=== PATIENT | male | born 1995 | race Caucasian/White ===

== ENCOUNTER 2022-04-18 23:30 | Inpatient (IN) | payer SELFPAY ==
[~2022-04-18] VITALS: Ht 162.6 cm; Wt 136.1 kg
[2022-04-18 23:50] VITALS: BP 140/79
--- NOTE | 2022-04-18 23:52 | NUR ---
PT TAKEN TO BED 07.
--- NOTE | 2022-04-18 23:57 | NUR ---
PATIENT INTO GOWN IN BED WITH SIDE RAILS UP X1. AWARE OF URINE SAMPLE NEEDED. URINE CUP AT BEDSIDE
[2022-04-19] VITALS (15 sets, daily range): BP systolic 109–163; BP diastolic 70–103
[2022-04-19 00:14] LABS: BASOPHILS % (AUTO) 0.4 % (0.0-2.0); EOSINOPHILS # (AUTO) 0.1 K/uL (0-0.4); HEMATOCRIT 44.9 % (36-52); HEMOGLOBIN 15.3 g/dL (12.0-18.0); LYMPHOCYTES # (AUTO) 2.5 K/uL (2.0-11.5); LYMPHOCYTES % (AUTO) 23.8 % (20.5-51.1); MEAN CORPUSCULAR HEMOGLOBIN 30 pg (27-31); MEAN CORPUSCULAR HGB CONC 34 g/dL (33-37); MEAN CORPUSCULAR VOLUME 86.7 fL (80-94); MONOCYTES # (AUTO) 0.9 K/uL (0.8-1.0); MONOCYTES % (AUTO) 8.4 % (1.7-9.3); NEUTROPHILS # (AUTO) 6.9 K/uL (1.8-7.7); NEUTROPHILS % (AUTO) 66.4 % (42.2-75.2); PLATELET COUNT (AUTO) 285 K/uL (140-450); RED BLOOD CELL COUNT(AUTO) 5.18 MIL/uL (4.20-6.10); RED CELL DISTRIBUTION WIDTH 13.8 % (11.6-13.7); WHITE BLOOD COUNT (AUTO) 10.4 K/uL (4.8-10.8)
--- NOTE | 2022-04-19 00:19 | NUR ---
URINE WALKED TO LAB
--- NOTE | 2022-04-19 00:30 | NUR ---
26 Y/O MALE BIB SELF FOR ABD PAIN THAT STARTED TODAY. PAIN RADIATES IN RLQ TO RIGHT UPPER THIGHDENIES N/V/F/COUGH/ CHEST PAIN; SKIN IS PINK/WARM/DRY; AAOX4 WITH EVEN AND STEADY GAIT; LUNGS CLEAR BL; HR EVEN AND REGULAR; PT DENIES ANY FEVER, CP, SOB, OR COUGH AT THIS TIME; PATIENT STATES PAIN OF 0/10 AT THIS TIME; VSS; PATIENT POSITIONED FOR COMFORT; HOB ELEVATED; BEDRAILS UP X2; BED DOWN. ER MD MADE AWARE OF PT STATUS.
[2022-04-19] MEDS ORDERED: LOPERAMIDE 2 MG CAP PO ONE (00:35)
[2022-04-19] MEDS ORDERED: DICYCLOMINE 10 MG CAP PO ONE (00:35)
--- NOTE | 2022-04-19 00:38 | NUR ---
PT TAKEN TO CT
[2022-04-19 00:42] LABS: ALBUMIN 3.9 g/dL (3.4-5.0); ANION GAP 10.3 (8-16); CARBON DIOXIDE 30.3 mmol/L (21-32); CREATININE 1.1 mg/dL (0.6-1.3); POTASSIUM 4.6 mmol/L (3.5-5.1); TOTAL BILIRUBIN 0.5 mg/dL (0.0-1.0)
--- NOTE | 2022-04-19 00:50 | NUR ---
PT BACK FROM CT MEDS GIVEN AND TOLERATED
[2022-04-19 01:00] LABS: APPEARANCE,URINE CLEAR (CLEAR); BILIRUBIN,URINE NEGATIVE (NEGATIVE); BLOOD, URINE NEGATIVE (NEGATIVE); COLOR,URINE YELLOW (YELLOW); LEUKOCYTE ESTERASE ,URINE NEGATIVE (NEGATIVE); NITRITE, URINE NEGATIVE (NEGATIVE); UGLUCOSE NEGATIVE (NEGATIVE)
[2022-04-19] MEDS ORDERED: NACL 0.9% 1,000 ML IV ONE (03:00)
[2022-04-19] MEDS ORDERED: MORPHINE SULFATE 4 MG/ML SYR IVP PRN (03:00)
--- NOTE | 2022-04-19 03:19 | NUR ---
20G IV CATH PLACED L AC. PT ON MONITOR SIDE RAILS UP X2
--- NOTE | 2022-04-19 04:33 | NUR ---
SKIN IS INTACT. PT DENIES TAKING MEDICATION AT HOME.
--- NOTE | 2022-04-19 04:36 | NUR ---
COVID SWAB COLLECTED AND SENT TO LAB
--- NOTE | 2022-04-19 05:38 | NUR ---
XRAY AT BEDSIDE
--- NOTE | 2022-04-19 05:52 | NUR ---
PENDING ADMISSION ORDERS FOR [facility]
--- NOTE | 2022-04-19 06:18 | NUR ---
SPOKE WITH DR SANDERS REQUESTED SURGERY CHECK LIST ON PATIENT FOR SURGERY THIS AM 0730. PATIENT AWARE OF SURGERY
--- NOTE | 2022-04-19 06:35 | NUR ---
SURGERY CHECK LIST COMPLETED BY LITA CRUZ. NOTIFED LAB ON TYPE AND CROSS ORDER
[2022-04-19 06:57] LABS: PROTHROMBIN TIME 9.5 secs (10.8-13.4)
--- NOTE | 2022-04-19 07:04 | NUR ---
DR MOSES AT BEDSIDE
--- NOTE | 2022-04-19 07:35 | NUR ---
Patient will be admitted to care of Moses MASSEY. Admitted to [facility]. Will go to room 120A. Belongings list completed. Report to Sharona CRUZ.
--- NOTE | 2022-04-19 07:40 | NUR ---
PT ARRIVED AT UNIT VIA WHEELCHAIR, AMBULATED TO BED, IN STABLE CONDITION. PT AWAKE ALERT, AAOX4, ABLE TO LET NEEDS KNOWN. IV TO LEFT AC 20G PATENT INTACT, SL. PT ON ROOM AIR, NO SOB NOTED, INITIAL ASSESSMENT DONE, ALL SAFETY PRECAUTION MET, MRSA SWAB TAKEN, ORIENT PT TO BED, CALL LIGHT AND ROOM. PT NPO FOR SURGERY TODAY. TEACH PT REGARDING PRE OP. PT STATED UNDERSTANDING, WILL CONTINUE TO MONITOR.
--- NOTE | 2022-04-19 07:46 | NUR ---
Pt report given to Brooke CRUZ. Transfer of care at this time.
[2022-04-19] MEDS ORDERED: BUPIVACAINE-MPF 0.25% 30 ML VIAL INJ ONE (07:59)
[2022-04-19] MEDS ORDERED: LIDOCAINE/EPI MPF 1%1:200000 30 ML VIAL INJ ONE (07:59)
--- NOTE | 2022-04-19 08:10 | NUR ---
PT TAKEN TO OR FOR PROCEDURE.
[2022-04-19] MEDS ORDERED: ONDANSETRON 4 MG/2 ML VIAL IM/IVP PRN (08:30)
[2022-04-19] MEDS ORDERED: POTASSIUM CHLORIDE 10 MEQ TABER PO PRN (08:30)
[2022-04-19] MEDS ORDERED: HYDROcodone/APAP 7.5/325 MG 1 TAB PO PRN (08:30)
[2022-04-19] MEDS ORDERED: ZOLPIDEM 5 MG TAB PO PRN (08:30)
[2022-04-19] MEDS ORDERED: guaiFENesin DM 200/20 MG-10 ML 10 ML UDC PO PRN (08:30)
[2022-04-19] MEDS: DEXT 5% /NACL 0.9% 1,000 ML IV SCH ×3 (08:30→20:25)
[2022-04-19] MEDS ORDERED: MORPHINE SULFATE 2 MG/ML SYR IVP PRN (08:30)
[2022-04-19] MEDS ORDERED: cephALEXin 500 MG CAP PO SCH (08:30)
[2022-04-19] MEDS ORDERED: fentaNYL citrate 0.05 MG/ML VIAL ONE (08:46)
[2022-04-19] MEDS ORDERED: PROPOFOL 200 MG/20 ML VIAL IV ONE ×2 (08:47)
[2022-04-19] MEDS: PANTOPRAZOLE 40 MG TABEC PO SCH (09:00)
[2022-04-19 09:29] LABS: BARBITURATE, URINE NEGATIVE ng/ml (NEG <=200); BENZODIAZEPINE, URINE NEGATIVE ng/mL (NEG <=200); CANNABINOID, URINE NEGATIVE ng/mL (NEG <=50); COCAINE, URINE NEGATIVE ng/mL (NEG <=300); OPIATE, URINE NEGATIVE ng/mL (NEG <=2000); PHENCYCLIDINE SCREEN,URINE NEGATIVE ng/mL (NEG <=25)
[2022-04-19] MEDS ORDERED: HYDROmorphone 1 MG/ML AMP IVP PRN (09:30)
[2022-04-19 09:51] LABS: AMYLASE 61 U/L (25-115); CHOL/HDL RATIO 5.3 (1-4.5); HDL CHOLESTEROL 33 mg/dL (40-60); LDL (CALC) 109 mg/dL (60-100); LIPASE 66 U/L (73-393); MAGNESIUM 2.2 mg/dL (1.8-2.4); PHOSPHORUS 3.5 mg/dL (2.5-4.9); TRIGLYCERIDES 174 mg/dL (30-150)
--- NOTE | 2022-04-19 10:01 | NUR ---
PATIENT HAS BEEN SCREENED AND CATEGORIZED LOW NUTRITION RISK. PATIENT WILL BE SEEN WITHIN 7 DAYS OF ADMISSION. 04/25/[address]
[2022-04-19 10:13] LABS: PROTHROMBIN TIME 9.7 secs (10.8-13.4)
[2022-04-19] MEDS ORDERED: ROCURONIUM 50 MG/5 ML VIAL IV ONE ×2 (10:17)
[2022-04-19] MEDS ORDERED: SUCCINYLCHOLINE CHLORIDE 200 MG/10 ML VIAL IVP ONE ×2 (10:17)
[2022-04-19 11:14] LABS: FREE T4 (FREE THYROXINE) 0.99 ng/dL (0.76-1.46); THYROID STIMULATING HORMONE 3.39 uIU/mL (0.34-3.74)
[2022-04-19] MEDS ORDERED: NALOXONE 0.4 MG/ML VIAL ONE (11:24)
--- NOTE | 2022-04-19 11:45 | NUR ---
ON OR ABOUT THIS TIME PATIENT WAS ADMITTED INTO ICU FROM THE OPERATING ROOM FOR RESPIRATORY DISTRESS THE PATIENT WAS ENTERING BED 5; PATIENT LOC AWAKE; WHILE THE OPERATING BUSINESS TEACHER WAS DEPRESSING THE AMBU BAG I HEARD AN AUDIBLE SOUND ON EXHALATION RESONATING FROM THE OROPHARYNGEAL REGION AND VIEWED THE ENDOTRACHEAL TUBE (ETT) SECURED AT 17-18cm LIP LINE; I THEN PROCEEDED TO INTERJECT 8ml OF AIR VIA A 10ml SYRINGE INTO THE PROFILE SHAPER OPERATOR BALLOON; THIS PROCESS DID NOT RESULT IN A PROPER SEAL WHICH WAS VALIDATED BY THE AMBU BAG DEPRESSION; PERSISTENT AUDIBLE SOUND IS AGAIN PRESENT DURING EXHALATION FROM THE OROPHARYNGEAL REGION; I THEN PROCEEDED TO INTERJECT ANOTHER 8ml OF VIA A 10ml SYRINGE INTO THE PROFILE SHAPER OPERATOR BALLOON; AGAIN THIS PROCESS DID NOT RESULT IN THE PROPER SEAL; I INFORMED DR. ROACH THAT THE ETT WAS OUT AND THAT THE PATIENT NEEDED TO BE REINTUBATED; PATIENT WAS NOW CONNECTED TO THE BEDSIDE MONITOR; THE SATURATION READING WAS 78%-80% I INFORMED DR. NICOLA ROACH THAT THE ENDOTRACHEAL TUBE WAS OUT AND NOT IN THE TRACHEA; THE FOREMENTIONED MD INSISTED THAT THE ETT WAS IN THE TRACHEA AND THAT "I HURRY UP" AND PLACE THE PATIENT ON THE VENTILATOR; ONCE THE PATIENT WAS PLACED ON A [employer] R860 VENTILATOR; UPON EXHALATION AN INCREASE IN AUDIBLE SOUND WAS AGAIN PRESENT FROM THE OROPHARYNGEAL REGION; I AGAIN INFORMED DR. ROACH THAT THE PATIENT WAS NOT PROPERLY INTUBATED AND NEEDED TO BE REINTUBATED; I POINTED OUT THREE FACTORS TO DR. ROACH 1) AUDIBLE SOUND FROM OROPHARYNGEAL REGION 2) LOW SATURATION 78%-80% 3) VENTILATOR NOT REGISTERING AN ADEQUATE TIDAL VOLUME (Vt) READING JOEL THAN 1ml; IT WAS AT THIS TIME DR. ROACH DECIDED TO REINTUBATE THE PATIENT
[2022-04-19] MEDS ORDERED: PROPOFOL 1000 MG/100 ML PREMIX 100 ML IV ONE (11:50)
--- NOTE | 2022-04-19 11:50 | NUR ---
PT TRANSFERRED TO ICU BED 5. HUMAN SERVICES MANAGER AND ANESTHESIOLOGIST AT BEDSIDE. RT BAGGING PT.
[2022-04-19] MEDS: PROPOFOL 1000 MG/100 ML PREMIX 100 ML IV PRN ×2 (11:54→13:00)
--- NOTE | 2022-04-19 11:55 | NUR ---
ANESTHESIOLOGIST DR ROACH INTUBATED PATIENT.
--- NOTE | 2022-04-19 12:00 | NUR ---
PT TRANSFERRED TO ICU FROM OR, GIVEN BEDSIDE REPORT TO NANCY ARCHER FOR CONTINUOUS OF CARE.
--- NOTE | 2022-04-19 12:00 | NUR ---
ON OR ABOUT THIS TIME PATIENT EXTUBATED; REINTUBATED BY DR. NICOLA ROACH WITH A ENDOTRACHEAL TUBE (ETT) #7.5 SECURED AT 24cm TEETH/GUM LINE WITH AN ANCHOR FAST; ETT CUFF INJECTED WITH 8ml OF AIR VIA 10ml SYRINGE; ETT PLACEMENT CONFIRMATION VIA CO2 DETECTOR (YELLOW); AUSCULTATION TO BILATERAL LUNG DILLON APEX TO MID BY DR. ROACH; CXR TO FOLLOW
--- NOTE | 2022-04-19 12:00 | NUR ---
XRAY AT BEDSIDE
--- NOTE | 2022-04-19 12:03 | NUR ---
PLACED ON A Ilink SystemsSCAPE VENTILATOR PLUGGED INTO RED OUTLET TOLERATING WELL WITHOUT COMPLICATIONS NOTED TO AN ENDOTRACHEAL TUBE #7.5 SECURED AT 24cm TEETH/GUM LINE WITH AN ANCHOR FAST CUFF PRESSURE CHECKED NOTED AMBU BAG AT BEDSIDE EQUAL CHEAT RISE AIRWAY PATENT
--- NOTE | 2022-04-19 12:05 | NUR ---
RECEIVED BEDSIDE REPORT FROM BERYL ACOSTA RN FOR CONTINUITY OF CARE. SEDATED, RASS -3. ETT TO VENT, ACVC, FIO2 100%, VT 500, R 18, PEEP 5. SR ON BEDSIDE MONITOR. BOWEL SOUNDS ACTIVE. INCONTINENT OF BOWEL AND BLADDER. GENERALIZED WEAKNESS. ABD INCISIONS NOTED. L AC 20G PATENT INTACT, INFUSING PROPOFOL AT 60 MCG/KG/MIN. STANDARD PRECAUTIONS IN PLACE. SAFETY PRECAUTIONS MET. INITIAL ASSESSMENT COMPLETE, WILL CONTINUE TO CLOSELY MONITOR.
--- NOTE | 2022-04-19 12:20 | NUR ---
NGT INSERTED FOR PO SCHEDULED MEDS.
--- NOTE | 2022-04-19 12:28 | NUR ---
XRAY AT BEDSIDE
[2022-04-19] MEDS: cephALEXin 500 MG CAP PO SCH ×3 (13:56→23:08)
[2022-04-19 13:57] LABS: BASOPHILS % (AUTO) 0.1 % (0.0-2.0); EOSINOPHILS % (AUTO) 0.1 % (0.0-4.0); HEMATOCRIT 44.6 % (36-52); LYMPHOCYTES # (AUTO) 1.2 K/uL (2.0-11.5); LYMPHOCYTES % (AUTO) 8.9 % (20.5-51.1); MEAN CORPUSCULAR HEMOGLOBIN 30 pg (27-31); MEAN CORPUSCULAR HGB CONC 34 g/dL (33-37); MEAN CORPUSCULAR VOLUME 87.6 fL (80-94); MONOCYTES # (AUTO) 0.7 K/uL (0.8-1.0); NEUTROPHILS # (AUTO) 11.4 K/uL (1.8-7.7); NEUTROPHILS % (AUTO) 85.9 % (42.2-75.2); PLATELET COUNT (AUTO) 277 K/uL (140-450); RED BLOOD CELL COUNT(AUTO) 5.09 MIL/uL (4.20-6.10); RED CELL DISTRIBUTION WIDTH 13.9 % (11.6-13.7); WHITE BLOOD COUNT (AUTO) 13.2 K/uL (4.8-10.8)
--- NOTE | 2022-04-19 14:02 | NUR ---
PER SUZI/DATA TRANSCRIBERNANCY FERGUSON PLACE PATIENT ON CPAP; IF TOLERATED X 30 MINUTES DRAW ABG Addendum: 04/19/22 at 1415 by Emmanuel Nugent RT ANA MARIA = MICHELE
[2022-04-19 14:04] LABS: ALBUMIN 3.6 g/dL (3.4-5.0); ANION GAP 10.9 (8-16); CARBON DIOXIDE 28.5 mmol/L (21-32); CREATININE 1.1 mg/dL (0.6-1.3); MAGNESIUM 1.7 mg/dL (1.8-2.4); PHOSPHORUS 3.4 mg/dL (2.5-4.9); POTASSIUM 4.4 mmol/L (3.5-5.1); TOTAL BILIRUBIN 0.5 mg/dL (0.0-1.0)
--- NOTE | 2022-04-19 14:05 | NUR ---
PER MICHELE LÓPEZ/ DARVIN FERGUSON; PLACED ON CPAP NOTED TOLERATING WELL WITHOUT DISTRESS NOTED EQUAL CHEST RISE GOOD AERATION THROUGHOUT BILATERAL LUNG DILLON AIRWAY PATENT SUZI/PAST DUE ACCOUNTS CLERK NOTIFIED
--- NOTE | 2022-04-19 14:48 | NUR ---
TOLERATING CPAP TRIALS WELL WITHOUT COMPLICATIONS NOTED GOOD CHEST RISE AND AERATION THROUGHOUT BILATERAL LUNG DILLON AIRWAY PATENT
--- NOTE | 2022-04-19 14:57 | NUR ---
ABG DONE TO VALIDATE CPAP TRIAL
--- NOTE | 2022-04-19 15:07 | NUR ---
CALLED DR. DARVIN FERGUSON AT [facility] TO REVIEW ABG SAMPLE REPORT CHE/EXCHANGE TO PAGE FORMKARLIE MASSEY; CALL BACK PHONE NUMBER AND PATIENT INFORMATION GIVEN
--- NOTE | 2022-04-19 15:09 | NUR ---
CALL BACK FROM DR. DARVIN FERGUSON REVIEWED ABG SAMPLE REPORT TORBO: EXTUBATE PATIENT; HHN Q4PRN FOR SOB; CALL/TEXT MD EITHER WAY IF PATIENT IS "GOOD OR BAD"
[2022-04-19] MEDS ORDERED: ALBUTEROL SULFATE/IPRATROPIU 3 ML SOL IH PRN (15:15)
--- NOTE | 2022-04-19 17:00 | NUR ---
REMOVED NGT INDICATED. PT TOLERATES ICE CHIPS, THIN LIQUIDS, AND APPLESAUCE FOR BEDSIDE SWALLOW EVALUATION. WILL CONTINUE TO CLOSELY MONITOR
--- NOTE | 2022-04-19 17:15 | NUR ---
VIA HOSPITAL TEXT DR. DARVIN FERGUSON INFORMED OF PROGRESS OF PATIENT OFF VENTILATOR
[2022-04-19] MEDS: DOCUSATE SODIUM 100 MG GELCAP PO PRN (18:01)
--- NOTE | 2022-04-19 18:18 | NUR ---
PT COMPLAINS OF CHILLS, AXILLARY TEMPERATURE 100.5. TYLENOL ADMINISTERED PER PRN ORDERS.
[2022-04-19] MEDS: ACETAMINOPHEN 325 MG TAB PO PRN (18:19)
--- NOTE | 2022-04-19 19:20 | NUR ---
ENDORSED BEDSIDE REPORT TO HONG VICKERS RN FOR CONTINUITY OF CARE.
--- NOTE | 2022-04-19 19:27 | NUR ---
PT ALERT AND ORIENTED X 4, SITTING AT SIDE OF BED.STILL ON NPO EXCEPT MEDS; MESSAGE DR GIFFORD, ORDERS RECEIVED TO PLACE PT ON REGULAR DIET, TO EAT SLOWLY.PT MADE AWARE.HONG CRUZ ALSO AWARE OF THE DIET CHANGE.
--- NOTE | 2022-04-19 19:30 | NUR ---
RECEIVED REPORT FROM NANCY ALARCON AT BEDSIDE FOR CONTINUITY OF CARE, PT IS SITTING UP IN BED HE IS ALERT AND ORIENTED X4 AND ON 3 LITERS VIA N/C HE HAS A 20 GUAGE IV SITE ON THE LEFT AC WHICH IS SALINE LOCKED AT THIS TIME. PT HAS 2 SURGICAL WOUNDS WHICH ARE DRY AND INTACT CLOSED WITH DERMABOND SURROUNDING SKIN IS PINK. PT ABLE TO PIVOT TRANSFER TO THE COMMODE HE IS TRYING TO HAVE A BOWEL MOVEMENT. PT SAID PAIN IS TOLERABLE AND THAT HE DOESN'T WANT TO SLOW DOWN BOWEL MOVEMENT WITH PAIN MEDICATION. ALL UNIVERSAL PRECAUTION IN PLACE.
--- NOTE | 2022-04-19 20:20 | NUR ---
RT WAS AT BEDSIDE 02 TO 2 LITERS VIA N/C. LUNG SOUNDS CLEAR BUT DIMINISHED, BOWEL SOUNDS ARE HYPOACTIVE. V/S FOLLOWS: T 98.7 P 112 R 28 B/P 144/70 02 98% AT 3 LITERS VIA 02. SURGICAL; WOUNDS MEASURED, AND PICTURES TAKEN WOUND MEASUREMENTS FOLLOWS: LOWER ABDOMINAL WOUND MEASURES 1MM X 3 CM X O DEPTH AND UMBICAL WOUND MEASURES 2CM X 1MM XO DEPTH. ALL UNIVERSAL FALLS PRECAUTIONS IN PLACE.
[2022-04-19] MEDS: HYDROcodone/APAP 5/325 MG 1 TAB TAB PO PRN (23:07)
--- NOTE | 2022-04-19 23:15 | NUR ---
PT ASSISTED TO BEDSIDE COMMODE ;PT WANTED TO TRY AND HAVE A BM. PT ONLY VOIDED, HE WAS ASSISTED BACK TO BED. HE HAD C/O OF 6/10 PAIN IN HIS ABDOMEN. PT INSTRUCTED TO SPLINT ABDOMEN WITH A PILLOW WHEN COUGHING, OR BLOWING HIS NOSE OR OTHERWISE USING ABDOMINAL MUSCLES. PT WAS GIVEN 1 TAB NORCO PO/PRN FOR MODERATE PAIN. PT ALSO GIVEN ORDERED KEFLEX PO. EDUCATION REGARDING MEDICATION PROVIDED AT BEDSIDE. PT VERBALIZED UNDERSTANDING. D5N/S RUNNING AT 170MLS/HR ORDERED IV SITE INTACT AND FLUSHED PATENT. ALL UNIVERSAL FALLS PRECAUTIONS IN PLACE.
[2022-04-20] VITALS (7 sets, daily range): BP systolic 103–153; BP diastolic 55–103
--- NOTE | 2022-04-20 00:30 | NUR ---
PT HAD SUPPLEMENTAL 02 OFF IN EFFORT TO WEAN DOWN PT FROM O2, HIS 02 DROPPED TO 91, PT PLACED BACK ON 2 LITERS 02 VIA N/C. ALSO NEW BAG OF D5N/S AND CONTINUES TO RUN AT 170MLS/HR ORDERED. V/S FOLLOWS: T 98.4 P 93 R 26 02 91% ON ROOM AIR. ALL UNIVERSAL FALLS PRECAUTIONS IN PLACE.
[2022-04-20] MEDS: DEXT 5% /NACL 0.9% 1,000 ML IV SCH ×2 (01:11→07:46)
--- NOTE | 2022-04-20 02:30 | NUR ---
ROUNDS DONE, PT ASLEEP IN BED. D5N/S CONTINUES ORDERED AT 170MLS/HR ALL UNIVERSAL FALLS PRECAUTIONS IN PLACE.
--- NOTE | 2022-04-20 04:30 | NUR ---
ROUNDS DONE, IV FLUSHED, PT ASLEEP BUT AWAKENED TO NAME AND LIGHT TOUCH , NO C/O VOICED. ALL FALLS PRECAUTIONS IN PLACE.
[2022-04-20 06:16] LABS: ANION GAP 10.9 (8-16); CARBON DIOXIDE 28.8 mmol/L (21-32); CREATININE 0.9 mg/dL (0.6-1.3); POTASSIUM 3.7 mmol/L (3.5-5.1)
[2022-04-20 06:30] LABS: BASOPHILS % (AUTO) 0.2 % (0.0-2.0); EOSINOPHILS % (AUTO) 0.5 % (0.0-4.0); HEMATOCRIT 41.7 % (36-52); HEMOGLOBIN 14.1 g/dL (12.0-18.0); LYMPHOCYTES # (AUTO) 2.1 K/uL (2.0-11.5); LYMPHOCYTES % (AUTO) 21.4 % (20.5-51.1); MEAN CORPUSCULAR HEMOGLOBIN 30 pg (27-31); MEAN CORPUSCULAR HGB CONC 34 g/dL (33-37); MEAN CORPUSCULAR VOLUME 87.3 fL (80-94); NEUTROPHILS # (AUTO) 6.6 K/uL (1.8-7.7); NEUTROPHILS % (AUTO) 67.9 % (42.2-75.2); PLATELET COUNT (AUTO) 267 K/uL (140-450); RED BLOOD CELL COUNT(AUTO) 4.78 MIL/uL (4.20-6.10); RED CELL DISTRIBUTION WIDTH 13.9 % (11.6-13.7); WHITE BLOOD COUNT (AUTO) 9.7 K/uL (4.8-10.8)
[2022-04-20] MEDS: cephALEXin 500 MG CAP PO SCH ×3 (06:35→18:05)
--- NOTE | 2022-04-20 06:35 | NUR ---
patient was given keflex by mouth at 0633. Patient was educated on name of medication and indication to prevent infection from surgery.
--- NOTE | 2022-04-20 07:10 | NUR ---
RECEIVED BEDSIDE REPORT FROM HONG VICKERS RN FOR CONTINUITY OF CARE. AAOX4, RESTING COMFORTABLY, PERRLA. ON 2L NC. SR ON BEDSIDE MONITOR. BOWEL SOUNDS ACTIVE. CONTINENT OF BOWEL, BEDSIDE COMMODE NOTED, FLATUS NOTED LAST NIGHT PER PT. CONTINENT OF BLADDER, URINAL AT BEDSIDE. ABD INCISIONS TO MEDIAL UMBILICUS AND LL ABD, SEE WOUND ASSESSMENT. L AC 20G PATENT INTACT, INFUSING D5NS AT 170 ML/H. STANDARD PRECAUTIONS IN PLACE. SAFETY PRECAUTIONS MET. INITIAL ASSESSMENT COMPLETE, WILL CONTINUE TO CLOSELY MONITOR.
--- NOTE | 2022-04-20 07:14 | NUR ---
REPORT GIVEN TO AGNES AT BEDSIDE FOR CONTINUITY OF CARE, PT IN STABLE CONDITION. ALL UNIVERSAL FALLS PRECAUTIONS IN PLACE.
--- NOTE | 2022-04-20 07:45 | NUR ---
SATURATION 92% ON ROOM AIR POST HHN THERAPY PLACED ON HUMIDIFIED SUPPLEMENTAL OXYGEN AT 2 LPM VIA NC
[2022-04-20 08:09] LABS: T4 (THYROXINE) 7.5 ug/dL (4.5-12.0)
[2022-04-20] MEDS: PANTOPRAZOLE 40 MG TABEC PO SCH (08:19)
--- NOTE | 2022-04-20 08:48 | NUR ---
SEEN AND EXAMINED BY DR GIFFORD, RECEIVED DOWNGRADE ORDERS.
--- NOTE | 2022-04-20 09:30 | NUR ---
PT FINISHED 25% OF BREAKFAST. TOLERATED WELL. WILL CONTINUE TO CLOSELY MONITOR.
--- NOTE | 2022-04-20 11:45 | NUR ---
ON AO ABOUT THIS TIME Addendum: 04/20/22 at 1510 by Emmanuel Nugent RT CANCELLED
--- NOTE | 2022-04-20 12:45 | NUR ---
PT FINISHED 25% OF LUNCH. WILL CONTINUE TO CLOSELY MONITOR.
[2022-04-20] MEDS: ACETAMINOPHEN 325 MG TAB PO PRN (14:11)
--- NOTE | 2022-04-20 15:00 | NUR ---
ENDORSED BEDSIDE REPORT TO BERYL ACOSTA RN FOR CONTINUITY OF CARE.
--- NOTE | 2022-04-20 15:01 | NUR ---
RECEIVED BEDSIDE REPORT FROM NANCY HULL, PT RESTING, NO DISTRESS NOTED, IV TO LEFT AC 20G PATENT INTACT, PT ON ROOM AIR, NO SOB NOTED, AWAKE ALERT ABLE TO LET NEEDS KNOWN, WILL CONTINUE TO MONITOR.
--- NOTE | 2022-04-20 15:21 | NUR ---
DC PLANN[age] YRS OLD MALE PATIENT WAS ADMITTED FROM HOME WITH A DX OF APPENDICITIS. PATIENT HAS A HX OF OBESITY. CT ABD SHOWED SLIGHTLY ENLARGED APPENDIX. CXR SHOWED LOW LUNG VOLUMES WITH VASCULAR CROWDING. RAPID COVID TEST NEGATIVE. DR SANDERS PERFORMED LAPAROSCOPIC APPENDECTOMY. ADMINISTERED IVF . DC PLAN TO GO HOME WHEN STABLE CM TO FOLLOW
--- NOTE | 2022-04-20 15:45 | NUR ---
PT TRANSFERRED TO ROOM 120B, TOLERATED WELL, SITUATED PT TO BED, ORIENT PT TO BED ROOM AND CALL LIGHT, WILL CONTINUE TO MONITOR.
--- NOTE | 2022-04-20 19:30 | NUR ---
ENDORSED PT TO GATE AGENT NURSE ARASELI CRUZ, FOR CONTINUOUS OF CARE.
--- NOTE | 2022-04-20 19:49 | NUR ---
GET THE REPORT FROM MORNING NURSE BERYL , PATIENT IS ALERT ORIENTED X 4 , CALL LIGHT IS WITHIN THE REACH ,WILL CONTINUE TO MONITOR PATIENT.
--- NOTE | 2022-04-20 20:20 | NUR ---
PATIENT IS LYING ON BED, PATIENT IS ALERT AND ORIENTED X 4 , VITAL SIGN IS WITHIN THE NORMAL RANGE, NO ANY COMPLAIN OF PAIN OR SHORTNESS OF BREATH AT THIS TIME, CALL LIGHT IS WITHIN THE REACH ,WILL CONTINUE TO MONITOR PATIENT.
[2022-04-20] MEDS: HYDROcodone/APAP 5/325 MG 1 TAB TAB PO PRN (21:15)
--- NOTE | 2022-04-20 21:15 | NUR ---
PATIENT IS COMPLAINING OF PAIN 6/10, NORCO 5/325 MG PO IS GIVEN PER DOCTOR ORDER, WILL REASSESS PAIN LAVAL IN HOUR, CALL LIGHT IS WITHIN THE REACH, WILL CONTINUE TO MONITOR PATIENT.
[2022-04-21] MEDS: cephALEXin 500 MG CAP PO SCH ×2 (00:02→05:17)
--- NOTE | 2022-04-21 00:09 | NUR ---
PATIENT IS LYING ON BED , ALL SCHEDULE MEDICATION IS GIVEN PER DOCTOR ORDER, NO ANY COMPLAIN OF PAIN AT THIS TIME ,CALL LIGHT IS WITHIN THE REACH, WILL CONTINUE TO MONITOR PATIENT.
--- NOTE | 2022-04-21 02:47 | NUR ---
PATIENT IS LYING ON BED, NO ANY COMPLAIN OF PAIN AT THIS TIME, CALL LIGHT IS WITHIN THE REACH ,WILL CONTINUE TO MONITOR PATIENT
[2022-04-21 04:00] VITALS: BP 137/79
[2022-04-21] MEDS: DEXT 5% /NACL 0.9% 1,000 ML IV SCH (04:17)
--- NOTE | 2022-04-21 05:12 | NUR ---
PATIENT IS LYING ON BED, NO ANY COMPLAIN OF PAIN AT THIS TIME, VITAL SIGN IS WITHIN THE NORMAL RANGE, CALL LIGHT IS WITHIN THE REACH ,WILL CONTINUE TO MONITOR PATIENT.
[2022-04-21 05:15] LABS: ANION GAP 10.2 (8-16); CARBON DIOXIDE 29.4 mmol/L (21-32); CREATININE 0.9 mg/dL (0.6-1.3); POTASSIUM 3.6 mmol/L (3.5-5.1)
--- NOTE | 2022-04-21 05:19 | NUR ---
ALL SCHEDULE MEDICATION IS GIVEN PER DOCTOR ORDER, CALL LIGHT IS WITHIN THE REACH, WILL CONTINUE TO MONITOR PATIENT.
[2022-04-21 06:05] LABS: BASOPHILS % (AUTO) 0.2 % (0.0-2.0); EOSINOPHILS # (AUTO) 0.1 K/uL (0-0.4); EOSINOPHILS % (AUTO) 1.2 % (0.0-4.0); HEMATOCRIT 40.8 % (36-52); HEMOGLOBIN 13.8 g/dL (12.0-18.0); LYMPHOCYTES % (AUTO) 23.6 % (20.5-51.1); MEAN CORPUSCULAR HEMOGLOBIN 30 pg (27-31); MEAN CORPUSCULAR HGB CONC 34 g/dL (33-37); MEAN CORPUSCULAR VOLUME 87.7 fL (80-94); MONOCYTES # (AUTO) 0.7 K/uL (0.8-1.0); MONOCYTES % (AUTO) 8.8 % (1.7-9.3); NEUTROPHILS # (AUTO) 5.5 K/uL (1.8-7.7); NEUTROPHILS % (AUTO) 66.2 % (42.2-75.2); PLATELET COUNT (AUTO) 252 K/uL (140-450); RED BLOOD CELL COUNT(AUTO) 4.66 MIL/uL (4.20-6.10); RED CELL DISTRIBUTION WIDTH 13.7 % (11.6-13.7); WHITE BLOOD COUNT (AUTO) 8.4 K/uL (4.8-10.8)
--- NOTE | 2022-04-21 07:20 | NUR ---
GAVE REPORT TO MORNING NURSE COLE FOR CONTINUOS OF ACRE, PATIENT IS STABLE.
--- NOTE | 2022-04-21 07:21 | NUR ---
RECEIVED REPORT FORM HOME HEALTH SCHEDULER NURSE. PATIENT LYING DOWN IN BED SLEEPING, AROUSABLE BY VOICE. NO DISTRESS NOTED. DENIES ANY PAIN. AAOX4, CALM, COOPERATIVE, APPROPRIATE AFFECT. IV SITE INTACT, PATENT, AND INFUSING IVF PER MD ORDERS. REVIEWED PLAN OF CARE WITH PATIENT. VERBALIZED UNDERSTANDING. SAFETY MEASURES IN PLACE, CALL LIGHT WITHIN REACH. WILL CONTINUE TO MONITOR.
[2022-04-21 08:00] VITALS: BP 154/92
[2022-04-21] MEDS ORDERED: ACET-9525 PO (08:45)
[2022-04-21] MEDS ORDERED: DOCU-299 PO (08:45)
[2022-04-21] MEDS: PANTOPRAZOLE 40 MG TABEC PO SCH (08:48)
--- NOTE | 2022-04-21 08:48 | NUR ---
SCHEDULED MEDICATIONS DUE GIVEN. WILL CONTINUE TO MONITOR.
[2022-04-21] MEDS: DOCUSATE SODIUM 100 MG GELCAP PO PRN (08:51)
--- NOTE | 2022-04-21 10:32 | NUR ---
DISCHARGE INSTRUCTIONS PROVIDED TO PATIENT IN PREFERRED LANGUAGE OF CHILEAN. INSTRUCTIONS ON FOLLOW-UP VISIT WITH PCP AND GENERAL SURGEON, NEW MEDICATIONS AND SIDE EFFECTS, AND WOUND CARE MANAGEMENT. ANSWERED ALL OF PATIENT'S QUESTIONS REGARDING DISCHARGE. VERBALIZED UNDERSTANDING. IV SITE REMOVED WITH MINIMAL BLOOD AND LUMEN COMPLETELY INTACT. PATIENT GETTING DRESSED THEN WILL BE ESCORTED DOWN TO LOBBY VIA WHEELCHAIR. DOWN AT LOBBY WAITING FOR PATIENT.
== END 2022-04-21 10:45 | disposition home or self-care (01) | DRG 341 ==
LOC: MED 23:30 → MTU 04-19 06:38 → MIC 04-19 12:30 → MTU 04-20 15:00
PROVIDERS: ADMIT Student in an Organized Health Care Education/Training Program; ATTEND Student in an Organized Health Care Education/Training Program
PROC: 0DTJ4ZZ Resection of Appendix, Percutaneous Endoscopic Approach (ICD-10-PCS; principal; 2022-04-19 08:00)
DX: K35.80 Unspecified acute appendicitis (principal); J96.01 Acute respiratory failure with hypoxia; Z68.43 Body mass index [BMI] 50.0-59.9, adult; G93.40 Encephalopathy, unspecified; E66.9 Obesity, unspecified; E86.0 Dehydration; F14.10 Cocaine abuse, uncomplicated; R74.01 Elevation of levels of liver transaminase levels; Z20.822 Contact with and (suspected) exposure to COVID-19
CPT/HCPCS: 31500; 36415; 71045; 80048; 80053; 80305; 81003; 82150; 83036; 83690; 83735; 83880; 84100; 84436; 84439; 84443; 84479; 84484; 85025; 85610; 85730; 86886; 86900; 86901; 87081; 88304; 94002; 94640; 96361; 96374; 99285; J0330; J2001; J2270; J2310; J2405; J2704; J3010; J3490; J7030; Q0092